=== PATIENT | male | born 1995 | race Caucasian/White ===

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

== ENCOUNTER 2018-03-27 14:41 | Emergency (ER) | payer SELFPAY ==
[2018-03-27 16:09] LABS: HEMATOCRIT 46.2 % (36.0-47.0); HEMOGLOBIN 15.6 g/dL (12.5-16.1); MEAN CELL VOLUME 94 fl (78-95); MEAN CORPUSCULAR HEMOGLOBIN 32 pg (26-32); MEAN CORPUSCULAR HGB CONC 34 g/dL (33-37); MEAN PLATELET VOLUME 9.9 fl (7.4-10.4); PLATELET COUNT 185 K/mm3 (130-400); RED BLOOD COUNT 4.94 M/mm3 (4.20-5.60); WHITE BLOOD COUNT 12.2 K/mm3 (4.8-10.8)
[2018-03-27 16:24] LABS: STREP SCREEN NEGATIVE (NEGATIVE)
[2018-03-27 16:31] LABS: BAND 1 % (0-10); LYMPHOCYTE 12 % (20-51); MONOCYTE 8 % (1-10); NEUTROPHILS 79 % (42-75)
[2018-03-27] MEDS ORDERED: GUAIFEN-CODEIN118 ML PO (17:01)
[2018-03-27 17:10] VITALS: BP 128/83
== END 2018-03-27 17:06 | disposition home or self-care (01) ==
LOC: ED 14:41
PROVIDERS: Family Medicine
DX: J06.9 Acute upper respiratory infection, unspecified (principal); Q87.40 Marfan syndrome, unspecified; F17.210 Nicotine dependence, cigarettes, uncomplicated

== ENCOUNTER → 2020-11-21 | Outpatient (CLI) | payer SELFPAY ==
[~2020-11-21] MED LIST changes: +GUAIFEN-CODEIN118 ML PO
== END ==
LOC: LAB 12:56
DX: Z20.822 Contact with and (suspected) exposure to COVID-19 (principal)

== ENCOUNTER → 2021-10-10 | Outpatient (CLI) | payer BC | LOC: RAD 13:30 | DX: I71.2 Thoracic aortic aneurysm, without rupture (principal); Q87.40 Marfan syndrome, unspecified; Z98.890 Other specified postprocedural states | CPT/HCPCS: Q9967 ==

== ENCOUNTER → 2022-04-08 | Outpatient (CLI) | payer BC | LOC: RAD 10:51 | DX: N50.812 Left testicular pain (principal) ==

== ENCOUNTER → 2022-06-03 | Outpatient (CLI) | payer BC | LOC: RAD 08:45 | DX: R10.13 Epigastric pain (principal); R11.0 Nausea ==